=== PATIENT | male | born 1990 | race Caucasian/White ===

== ENCOUNTER 2018-09-19 17:30 | Emergency (ER) ==
[~2018-09-19] VITALS: Ht 177.8 cm; Wt 88.0 kg
--- NOTE | 2018-09-19 18:22 | NUR ---
patient came to the ER with laceration on the left eyebrow s/p fall from his skateboard, left knee abrasion. On room air, breathing evenly and unlabored. Kept comfortable, will continue to monitor accordingly.
[2018-09-19] MEDS ORDERED: LIDOCAINE 1%-EPI 1:100,000 50 ML VIAL IJ ONE (18:30)
[2018-09-19] MEDS ORDERED: TDAP [DIPH/PERTUSSIS/TET] 0.5 ML VIAL IM ONE ×2 (18:40→19:00)
[2018-09-19] MEDS ORDERED: LIDOCAINE 1%-EPI 1:100,000 20 ML VIAL ONE (18:40)
--- NOTE | 2018-09-19 19:20 | NUR ---
REPORT REC'D FROM [facility] R[facility] FOR [facility].
[2018-09-19 20:21] VITALS: BP 135/84
== END 2018-09-19 20:22 | disposition home or self-care (01) ==
LOC: ER 17:33
DX: S01.112A Laceration without foreign body of left eyelid and periocular area, initial encounter (principal); S80.212A Abrasion, left knee, initial encounter; S09.8XXA Other specified injuries of head, initial encounter; W01.198A Fall on same level from slipping, tripping and stumbling with subsequent striking against other object, initial encounter; Y93.51 Activity, roller skating (inline) and skateboarding; Y92.89 Other specified places as the place of occurrence of the external cause; Y99.8 Other external cause status
CPT/HCPCS: 12011; 90471; 90715; 99283; A6402; A6403; J3490 ×2